=== PATIENT | female | born 1945 | race Caucasian/White ===

== ENCOUNTER 2021-01-18 16:29 | Observation (INO) | payer OTHER, MEDICARE ==
[~2021-01-18] VITALS: Ht 162.6 cm; Wt 93.0 kg
[2021-01-18] MEDS ORDERED: ZYRTEC10 M4 PO (18:21)
[2021-01-18] MEDS ORDERED: BREO ELLIPTA 11 EACH INH (18:22)
[2021-01-18] MEDS ORDERED: NEXIUM20 MG PO (18:22)
[2021-01-18] MEDS ORDERED: SUPER THERAVIT1 EACH PO (18:23)
[2021-01-18] MEDS ORDERED: PROAIR DIGIHAL90 MCG INH (18:26)
[2021-01-18] MEDS ORDERED: LEVO-T50 MCG PO (18:28)
[2021-01-18] MEDS ORDERED: PHILLIPS' COLO1 EACH PO (18:29)
[2021-01-18] MEDS ORDERED: OTHER (18:34)
--- NOTE | 2021-01-18 18:37 | NUR ---
PT TO THE UNIT VIA EMS, FROM [facility]. PT ORIENTED TO ROOM AND BEDSPACE -ASSESSMENT CHARTED - SEEN BY DOCTOR COOPER. CONSULT FOR CARDIOLOGY NOTED. UP AD INGRID IN THE ROOM. MORENO DIET AND FLUIDS. NO CO'S OF PAIN OR NASUEA. STATES COMFORTABLE AT THE PRESENT TIME.
[2021-01-18 20:00] VITALS: BP 135/69
[2021-01-19] VITALS (7 sets, daily range): BP systolic 125–142; BP diastolic 60–85
--- NOTE | 2021-01-19 05:55 | NUR ---
PATIENTS CARES WERE ASSUMED AT SHIFT CHANGE. PATIENT WAS ASSESSED AND MEDS WERE PASSED. PATIENT C/O A HEADACHES THAT SHE BELIEVES WAS A RESULT OF THE NITRO PASTE SHE WAU GIVEN ROUNDING WAS DONE. THE BED IS IN A LOW AND LOCKED POSITION
--- NOTE | 2021-01-19 08:14 | EKG ---
[address] [address] ELECTROCARDIOGRAM REPORT Name: SATISH GUILLORY Room #: 204-P [facility] M.R.#: [id number] Admission: 01/18/21 Attend Phys: Donnell Avilez MD Discharge: Date of : 49 Report #: [id number] [facility] Test Date: 2021-01-19 Test Time: 07:45:29 Pat Name: SATISH GUILLORY Department: Room: 204 P Gender: F Marketing Clerk: PATRICA : 1945 Requested By: Jenny Guillory Order Number: [id number] : Hermes Hair Measurements Intervals [place] Rate: 97 P: MD: QRS: -27 QRSD: 86 T: -11 QT: 377 QTc: 479 Interpretive Statements Atrial fibrillation Ventricular premature complex Abnormal R-wave progression, 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
--- NOTE | 2021-01-19 10:05 | 2DMMODE ---
[facility] [place] [address] 2 D/M-MODE ECHOCARDIOGRAM Name: SATISH GUILLORY Room #: 204-P ADM Ary M.R.#: [id number] Admission: 01/18/21 Attend Phys: Donnell Avilez MD Discharge: Date of : 49 Report #: [id number] THIS REPORT FOR: cc: FAM - Family physician unknown FAM - Family physician unknown Hermes Hair MD [facility] ~ APPROVED REPORT Study performed: 01/19/2021 09:18:36 EXAM: Comprehensive 2D, Doppler, and color-flow Echocardiogram Patient Location: Bedside Room #: 204 Status: routine BSA: 1.98 HR: 90 bpm BP: 128/60 mmHg Rhythm: NSR Other Information Study Quality: Adequate Indications Dyspnea Chest Pain 2D Dimensions RVDd: 33.11 mm IVSd: 11.23 (7-11mm) LVOT Diam: 20.26 (18-24mm) LVDd: 44.03 mm PWd: 10.72 (7-11mm) Ascending Ao: 32.81 (22-36mm) LVDs: 26.54 (25-40mm) Left Atrium: 35.03 (27-40mm) Aortic Root: 34.40 mm Volumes Left Atrial Volume (Systole) Single Plane 4CH: 35.89 mL Single Plane 2CH: 51.35 mL LA ESV Index: 24.00 mL/m2 Aortic Valve AoV Peak Darian.: 1.88 m/s AO Peak Gr.: 14.13 mmHg LVOT Max P.85 mmHg LVOT Max V: 1.31 m/s [facility] [address] [place] [address] 2 D/M-MODE ECHOCARDIOGRAM Name: SATISH GUILLORY Room #: 204-P [facility] IN .[place].#: [id number] Admission: 01/18/21 Attend Phys: Donnell Avilez MD Discharge: Date of : 49 Report #: [id number] LORI Vmax: 2.24 cm2 Mitral Valve E/A Ratio: 1.1 MV Decel. Time: 185.03 ms MV E Max Darian.: 1.02 m/s MV A Darian.: 0.96 m/s MV PHT: 53.66 ms IVRT: 69.20 ms Pulmonary Valve PV Peak Darian.: 1.16 m/s PV Peak Gr.: 5.41 mmHg Tricuspid Valve TR Peak Darian.: 2.03 m/s RAP Estimate: 5.00 mmHg TR Peak Gr.: 16.42 mmHg PA Pressure: 21.00 mmHg Left Ventricle The left ventricle is normal size. There is normal LV segmental wall motion. There is normal left ventricular wall thickness. Left ventricular systolic function is normal. LVEF is 65%. Moderate diastolic dysfunction is present (pseudonormal filling). Right Ventricle The right ventricle is normal size. The right ventricular systolic function is normal. Atria The left atrium size is normal. The right atrium size is normal. Aortic Valve The aortic valve is normal in structure. No aortic regurgitation is present. There is no aortic valvular stenosis. Mitral Valve The mitral valve is normal in structure. Trace mitral regurgitation. No evidence of mitral valve stenosis. Tricuspid Valve The tricuspid valve is normal in structure. Trace tricuspid regurgitation. Estimated PAP is 20-25mmHg. Pulmonic Valve The pulmonary valve is normal in structure. There is no pulmonic [facility] [place] [address] 2 D/M-MODE ECHOCARDIOGRAM Name: SATISH GUILLORY Room #: 204-P ADM IN M.R.#: [id number] Admission: 01/18/21 Attend Phys: Donnell Avilez MD Discharge: Date of : 49 Report #: [id number] valvular regurgitation. Great Vessels The aortic root is normal in size. The ascending aorta is normal in size. IVC is normal in size and collapses >50% with inspiration. Pericardium There is no pericardial effusion. <Conclusion> Normal left ventricular size/wall thickness Ejection fraction 60% Normal right ventricular size/function Normal atrial size Color-flow Doppler study was performed of the aortic/mitral/tricuspid/pulmonary valve Normal aortic/mitral valve structure and function Trace tricuspid valve insufficiency Pulmonary systolic pressure estimated 25 mmHg No pericardial effusion Normal aortic root size. <ELECTRONICALLY SIGNED> By: Hermes Hair MD, FAC 01/19/215 04 04 Hermes Hair MD, [facility] /INF
[2021-01-19 10:55] LABS: CHOLESTEROL 187 mg/dL (<200); HDL CHOLESTEROL 45 mg/dL (>40); LDL CHOLESTEROL 119 mg/dL (<100); TC:HDL 4.2 Ratio (Not establshd); TRIGLYCERIDE 118 mg/dL (<150); TROPONIN-I <0.06 ng/mL (<0.06); VLDL 24 mg/dL (<40)
[2021-01-19] MEDS ORDERED: BAYER CHEWABLE81 MG PO (14:55)
[2021-01-19] MEDS ORDERED: METOPROLOL TART25 MG PO (14:55)
[2021-01-19] MEDS ORDERED: LIPITOR 10 MG10 M1 PO (15:07)
--- NOTE | 2021-01-19 17:14 | NUR ---
PT CARE ASSUMED AT 0700. ASSESSMENTS CHARTED. MEDICATIONS CHARTED. LW IV. SINUS RHYTHM. TOILET. UP AD INGRID. DIET: HEART HEALTHY, ACHS. NM CARDIAC STRESS TEST COMPLETE. PT DISCHARGED TO HOME. DISCHARGE PAPERWORK SIGNED. NEW MEDS FAXED TO THE PHARMACY BY LUCIO SORENSON. TELEMETRY D/C'D. IV D/C'D.
== END 2021-01-19 17:00 | disposition home or self-care (01) ==
LOC: 2N 16:29
PROVIDERS: ADMIT Hospitalist; ATTEND Hospitalist
DX: R07.2 Precordial pain (principal); E03.9 Hypothyroidism, unspecified; E78.5 Hyperlipidemia, unspecified; F32.9 Major depressive disorder, single episode, unspecified; K21.9 Gastro-esophageal reflux disease without esophagitis; I25.10 Atherosclerotic heart disease of native coronary artery without angina pectoris; J45.909 Unspecified asthma, uncomplicated; K76.0 Fatty (change of) liver, not elsewhere classified; R01.1 Cardiac murmur, unspecified; Z82.49 Family history of ischemic heart disease and other diseases of the circulatory system; Z98.890 Other specified postprocedural states; Z90.710 Acquired absence of both cervix and uterus; Z90.49 Acquired absence of other specified parts of digestive tract